=== PATIENT | male | born 1990 | race Caucasian/White ===

== ENCOUNTER 2016-09-05 10:41 | Emergency (ER) | payer MEDICAID ==
[~2016-09-05] VITALS: Ht 177.8 cm; Wt 84.4 kg
[2016-09-05 10:42] VITALS: BP 160/94; PULSE 94; RESP 17; TEMP 97; O2SAT 100
[2016-09-05] MEDS ORDERED: ASPIRIN 81 MG TAB.CHEW PO ONE (11:00)
[2016-09-05] MEDS ORDERED: LORazepam 1 MG TABLET PO ONE (11:00)
[2016-09-05 11:32] LABS: BASOPHILS % (AUTO) 0.6 % (0.0-2.0); EOSINOPHILS # (AUTO) 0.2 K/uL (0.0-0.4); EOSINOPHILS % (AUTO) 3.5 % (0.0-4.0); HEMATOCRIT 45.4 % (36-54); HEMOGLOBIN 14.9 g/dL (14.0-18.0); LYMPHOCYTES # (AUTO) 2.6 K/uL (1.0-5.5); LYMPHOCYTES % (AUTO) 43.3 % (20.5-51.5); MEAN CORPUSCULAR HEMOGLOBIN 29 pg (27-31); MEAN CORPUSCULAR HGB CONC 33 % (32-36); MEAN CORPUSCULAR VOLUME 88 fL (79.0-98.0); MONOCYTES # (AUTO) 0.4 K/uL (0.0-1.0); MONOCYTES % (AUTO) 6.4 % (1.7-9.3); NEUTROPHILS # (AUTO) 2.8 K/uL (1.8-7.7); NEUTROPHILS % (AUTO) 46.2 % (40.0-70.0); PLATELET COUNT (AUTO) 285 K/uL (130-430); RED BLOOD CELL COUNT(AUTO) 5.18 MIL/uL (4.2-6.2); RED CELL DISTRIBUTION WIDTH 12.7 % (9.0-15.0)
[2016-09-05 11:39] LABS: CALCIUM 9.2 mg/dL (8.4-11.0); CREATININE 1.21 mg/dL (0.55-1.30); POTASSIUM 4.1 mmol/L (3.5-5.1)
[2016-09-05 12:00] VITALS: BP 137/79; PULSE 98; RESP 17; TEMP 97; O2SAT 100
== END 2016-09-05 12:00 | disposition home or self-care (01) ==
LOC: SED 10:41
DX: R07.89 Other chest pain (principal); F41.9 Anxiety disorder, unspecified; R03.0 Elevated blood-pressure reading, without diagnosis of hypertension
CPT/HCPCS: 36415; 71010; 80048; 83880; 84484; 85025; 85379; 93005; 99285

== ENCOUNTER 2022-02-20 23:03 | Emergency (ER) | payer MEDICAID ==
[~2022-02-20] VITALS: Ht 177.8 cm; Wt 88.0 kg
[2022-02-20 23:10] VITALS: BP_SYST 172
--- NOTE | 2022-02-20 23:10 | NUR ---
Placed in room 2 . Placed on cardiac cath technician, blood pressure machine and pulse oximeter. To gown for exam. Side rails up. Report given to Ravinder CALDERÓN.
--- NOTE | 2022-02-20 23:30 | NUR ---
Pt in bed 2 w/ c/o left-sided chest tightness x 1 week w/ SOB. Pt denies N/V/D, pt denies cough. Pt states "I have been taking anabolic steroids". 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 Pt on pulse oximetry. Normal skin color for ethnicity. Respirations even and unlabored.
[2022-02-20 23:55] LABS: BASOPHILS # (AUTO) 0.1 K/uL (0.0-0.2); BASOPHILS % (AUTO) 1.4 % (0.0-2.0); EOSINOPHILS # (AUTO) 0.1 K/uL (0.0-0.4); EOSINOPHILS % (AUTO) 1.7 % (0.0-4.0); HEMOGLOBIN 16.1 g/dL (14.0-18.0); LYMPHOCYTES # (AUTO) 2.5 K/uL (1.0-5.5); LYMPHOCYTES % (AUTO) 30.1 % (20.5-51.5); MEAN CORPUSCULAR HEMOGLOBIN 30 pg (27-31); MEAN CORPUSCULAR HGB CONC 35 % (32-36); MEAN CORPUSCULAR VOLUME 84 fL (79.0-98.0); MONOCYTES # (AUTO) 0.8 K/uL (0.0-1.0); NEUTROPHILS # (AUTO) 4.8 K/uL (1.8-7.7); NEUTROPHILS % (AUTO) 57.8 % (40.0-70.0); PLATELET COUNT (AUTO) 436 K/uL (130-430); RED BLOOD CELL COUNT(AUTO) 5.46 MIL/uL (4.2-6.2); RED CELL DISTRIBUTION WIDTH 18.4 % (9.0-15.0); WHITE BLOOD COUNT (AUTO) 8.4 K/uL (4.8-10.8)
--- NOTE | 2022-02-21 00:24 | NUR ---
MD at bedside at this time updating patient on plan of care.
[2022-02-21 00:29] LABS: ANION GAP 11 (5-15); CALCIUM 9.3 mg/dL (8.4-11.0); CHLORIDE 98 mmol/L (98-107); CREATININE 1.19 mg/dL (0.55-1.30); GLUCOSE 181 mg/dL (70-99); POTASSIUM 3.8 mmol/L (3.5-5.1); SODIUM SERUM 138 mmol/L (136-145); UREA NITROGEN, BLOOD 18 mg/dL (8-21)
[2022-02-21 00:32] LABS: GFR AFRICAN AMERICAN 92 mL/min (>90)
[2022-02-21 00:45] LABS: ALANINE AMINOTRANSFERASE 157 U/L (12-78); ALBUMIN 3.4 g/dL (3.4-4.8); ASPARTATE AMINOTRANSFERASE 64 U/L (10-37); TOTAL BILIRUBIN 6.6 mg/dL (0.0-1.0)
--- NOTE | 2022-02-21 02:30 | NUR ---
MD Mclean at patient bedside giving discharge information to patient.
--- NOTE | 2022-02-21 03:07 | NUR ---
Patient given written and verbal discharge instructions and verbalizes understanding. ER MD discussed with patient the results and treatment provided. Patient in stable condition. ID arm band removed. Patient educated on pain management and to follow up with PMD. Pain Scale . Opportunity for questions provided and answered. Medication side effect fact sheet provided.
[2022-02-21 03:08] VITALS: BP_SYST 142
== END 2022-02-21 03:08 | disposition home or self-care (01) ==
LOC: SED 23:03
DX: E80.6 Other disorders of bilirubin metabolism (principal); R07.9 Chest pain, unspecified; R06.02 Shortness of breath; R11.0 Nausea; R03.0 Elevated blood-pressure reading, without diagnosis of hypertension; Z79.899 Other long term (current) drug therapy
CPT/HCPCS: 36415; 71045; 80053; 84484; 85025; 85379; 93005; 99285

== ENCOUNTER 2022-02-23 22:36 | Emergency (ER) | payer MEDICAID ==
[~2022-02-23] VITALS: Ht 177.8 cm; Wt 85.7 kg
[2022-02-23 22:45] VITALS: BP_SYST 145
--- NOTE | 2022-02-23 22:45 | NUR ---
Patient triaged and placed in waiting room. VSS and patient appears in no acute distress at this time. Awaiting for available bed, and MD notified of need for MSE.
--- NOTE | 2022-02-23 23:14 | NUR ---
ER examining patient in the traige room.
[2022-02-23 23:40] VITALS: BP_SYST 142
--- NOTE | 2022-02-23 23:40 | NUR ---
Patient given verbal discharge instructions by Dr Carey verbalizes understanding. ER MD discussed with patient the results and treatment provided. Patient in stable condition. ID arm band removed. no Rx of given. Patient educated on pain management and to follow up with PMD. Pain Scale 0/10. Opportunity for questions provided and answered. Medication side effect fact sheet provided.
== END 2022-02-23 23:40 | disposition home or self-care (01) ==
LOC: SED 22:36
DX: R94.5 Abnormal results of liver function studies (principal)
CPT/HCPCS: 99281

== ENCOUNTER 2022-02-26 11:47 | Inpatient (IN) | payer MEDICAID ==
[~2022-02-26] VITALS: Ht 177.8 cm; Wt 86.2 kg
[2022-02-26 11:57] VITALS: BP_SYST 153
--- NOTE | 2022-02-26 12:03 | NUR ---
Triaged pt and pt placed in waiting room until bed becomes available. Pt c/o abnormal lab values. Liver enzymes elevated. Pt also very itchy. x1 week. Pt abruptly stopped using steroids he states he used for working out. A&Ox4. Skin intact. VSS. NKA. No known medical conditions. No chest pain and no sob. Skin slightly jaundice in appearance. Ambulatory with steady gait coming from home.
--- NOTE | 2022-02-26 12:32 | NUR ---
ER in triage examining patient.
[2022-02-26 12:57] LABS: BASOPHILS % (AUTO) 0.5 % (0.0-2.0); EOSINOPHILS # (AUTO) 0.1 K/uL (0.0-0.4); EOSINOPHILS % (AUTO) 1.8 % (0.0-4.0); HEMATOCRIT 48.7 % (36-54); HEMOGLOBIN 16.9 g/dL (14.0-18.0); LYMPHOCYTES # (AUTO) 1.4 K/uL (1.0-5.5); LYMPHOCYTES % (AUTO) 21.8 % (20.5-51.5); MEAN CORPUSCULAR HEMOGLOBIN 30 pg (27-31); MEAN CORPUSCULAR HGB CONC 35 % (32-36); MEAN CORPUSCULAR VOLUME 85 fL (79.0-98.0); MONOCYTES # (AUTO) 0.3 K/uL (0.0-1.0); MONOCYTES % (AUTO) 4.7 % (1.7-9.3); NEUTROPHILS # (AUTO) 4.7 K/uL (1.8-7.7); NEUTROPHILS % (AUTO) 71.2 % (40.0-70.0); PLATELET COUNT (AUTO) 436 K/uL (130-430); RED BLOOD CELL COUNT(AUTO) 5.71 MIL/uL (4.2-6.2); RED CELL DISTRIBUTION WIDTH 18.4 % (9.0-15.0); WHITE BLOOD COUNT (AUTO) 6.6 K/uL (4.8-10.8)
[2022-02-26 13:10] LABS: INR 0.9 (0.80-1.20); PROTHROMBIN TIME 9.5 SECS (9.5-12.5)
[2022-02-26 13:15] LABS: ALBUMIN 3.8 g/dL (3.4-4.8); CREATININE 1.11 mg/dL (0.55-1.30); TOTAL BILIRUBIN 7.7 mg/dL (0.0-1.0)
[2022-02-26 13:32] LABS: POTASSIUM 4.2 mmol/L (3.5-5.1)
[2022-02-26 14:44] LABS: AMYLASE 65 U/L (0-100)
[2022-02-26 14:49] LABS: C-REACTIVE PROTEIN QUANT < 0.2 mg/dL (0-0.5)
--- NOTE | 2022-02-26 17:09 | NUR ---
Notified ED Admitting regarding Dr. Gaona's request for admission/transfer. Per Dr. Gaona, pt is stable for transfer. Will contact unemployment insurance director regarding this matter.
--- NOTE | 2022-02-26 17:57 | NUR ---
Patient to ER bed 03 to gown for evaluation. Side rails up. Report given to KAITLYNN PERAZA
--- NOTE | 2022-02-26 18:00 | NUR ---
BROUGHT BACK TO BED #3 AWAITING ADMISSION
--- NOTE | 2022-02-26 18:01 | NUR ---
COVID SAMPLE SENT TO LAB 17:59.
--- NOTE | 2022-02-26 19:07 | NUR ---
# 20 gauge angiocath placed to right forearm. Use of asceptic technique. Opsite placed over site. Blood return noted. Flushed with 10 cc of normal saline. No evidence of infiltration noted. Patient tolerated well.
--- NOTE | 2022-02-26 19:33 | NUR ---
URINE OBTAINED AND TAKEN TO LAB
--- NOTE | 2022-02-26 19:43 | NUR ---
ENDORSED ALL CARE TO COLTON CALDERÓN.
--- NOTE | 2022-02-26 20:01 | NUR ---
Patient will be admitted to care of MD Ruvalcaba. Admitted to MS unit. Will go to room (PENDING). Belongings list completed. Complete and up to date summary report printed. SBAR report given at to KAITLYNN Garcia with opportunity for questions.
[2022-02-26 20:45] LABS: BILIRUBIN,URINE 2+ (NEGATIVE); CLARITY/URINE CLEAR (CLEAR); COLOR,URINE ORANGE (YELLOW); GLUCOSE,URINE NEGATIVE (NEGATIVE); KETONES,URINE NEGATIVE (NEGATIVE); LEUKOCYTE ESTERASE ,URINE NEGATIVE (NEGATIVE); NITRITE, URINE NEGATIVE (NEGATIVE); PROTEIN URINE NEGATIVE (NEGATIVE)
--- NOTE | 2022-02-26 20:45 | NUR ---
Pt arrived on unit at 2038 via W/C and accompanied by ER Staff Nurse. Pt condition stable.
[2022-02-26] MEDS: lisinopriL 20 MG TABLET PO SCH (21:00)
[2022-02-26 21:16] VITALS: BP_SYST 154
[2022-02-26 21:19] VITALS: BP_SYST 154
[2022-02-26 22:11] LABS: BLOOD, URINE TRACE (NEGATIVE)
--- NOTE | 2022-02-26 22:45 | NUR ---
Pt reports he was taking steroids from September 2021 through December 2021 for bodybuilding. His normal routine would be to follow this with Estrogen-lowering medication - but his liver was giving him trouble. He would normally do this routine every other year and began in his twenties while bodybuilding.
[2022-02-26 22:49] LABS: BACTERIA,URINE RARE /HPF (None Seen); RBC,URINE 0-3 /HPF (0-3); WBC,URINE 0-3 /HPF (0-3)
[2022-02-26 22:50] LABS: MUCUS,URINE 1+ /LPF (None Seen)
[2022-02-26] MEDS: DIPHENHYDRAMINE HCL 50 MG CAPSULE PO PRN (23:31)
[2022-02-27 01:00] VITALS: BP_SYST 147
--- NOTE | 2022-02-27 02:35 | NUR ---
Estrogen-modulating medication pt used was Clomid (Brand Name).
[2022-02-27] MEDS: DIPHENHYDRAMINE HCL 50 MG CAPSULE PO PRN ×2 (05:37→20:28)
--- NOTE | 2022-02-27 06:33 | NUR ---
Dr Graves's exchange ([phone]) was called for consult. Exchange notified nurse that Dr. Centeno will handle this consult. Information on pt, including INS. relayed to exchange.
[2022-02-27 08:00] VITALS: BP_SYST 123
[2022-02-27] MEDS: HYDROCHLOROTHIAZIDE 25 MG TABLET (HCTZ) PO SCH (08:33)
[2022-02-27 12:00] VITALS: BP_SYST 138
[2022-02-27] MEDS ORDERED: ursodioL 300 MG CAPSULE PO ONE (12:00)
[2022-02-27 12:36] LABS: TOTAL IRON BIND. CAPACITY 345 ug/dL (250-450)
[2022-02-27 12:42] LABS: ACETAMINOPHEN < 1 ug/mL (1-30)
--- NOTE | 2022-02-27 14:12 | NUR ---
Patient with order for CT Guided Liver Biopsy. Per Radiology, procedure will only be available by Wednesday. Called Dr. Centeno office and left message. Toll Transmission Worker Marti said she will message doctor or the situation. Will continue to monitor.
[2022-02-27 16:00] VITALS: BP_SYST 140
--- NOTE | 2022-02-27 18:00 | NUR ---
CLOSING NOTE: Pt. alert, oriented and verbally responsive, BRP. Pt. aware of situation regarding CT guided liver biopsy. Safety precaution observed, all needs met throughout shift. Will endorse to caustic cresylate shift superintendent RN.
[2022-02-27 20:05] VITALS: BP_SYST 116
[2022-02-27] MEDS: ursodioL 300 MG CAPSULE PO SCH (20:28)
[2022-02-27] MEDS: lisinopriL 20 MG TABLET PO SCH (20:28)
--- NOTE | 2022-02-27 22:18 | NUR ---
Rounds/PT refused IV Pt refused IV and pulled out his IV. Bleeding controlled and gauze applied. Educated pt on risks/benefits. Pt verbalized understanding. Pt moved to room 107-B with all his belongings.
[2022-02-28 00:20] VITALS: BP_SYST 104
--- NOTE | 2022-02-28 04:25 | NUR ---
rounds Dr. Lencho Ruvalcaba rounds.
[2022-02-28] MEDS ORDERED: BEN50 PO (04:29)
[2022-02-28] MEDS ORDERED: LISI20TA30 PO (04:29)
[2022-02-28] MEDS ORDERED: HCT25 PO (04:29)
[2022-02-28] MEDS ORDERED: VIS50 PO (04:29)
[2022-02-28] MEDS ORDERED: URSO300C7 PO (04:29)
--- NOTE | 2022-02-28 07:15 | NUR ---
Closing notes/spoke with GI Pt asleep, easily awakens, no s/s distress. Spoke with Dr. Barahona at the station and informed him that CT guided biopsy of liver won't be able to be done until Wednesday. Per MD pt is not cleared for discharge yet. Call light within reach. To endorse to AM nurse.
[2022-02-28 07:39] LABS: BASOPHILS % (AUTO) 0.7 % (0.0-2.0); EOSINOPHILS # (AUTO) 0.2 K/uL (0.0-0.4); EOSINOPHILS % (AUTO) 3.5 % (0.0-4.0); HEMATOCRIT 48.4 % (36-54); HEMOGLOBIN 16.6 g/dL (14.0-18.0); LYMPHOCYTES # (AUTO) 2.4 K/uL (1.0-5.5); LYMPHOCYTES % (AUTO) 35.4 % (20.5-51.5); MEAN CORPUSCULAR HEMOGLOBIN 29 pg (27-31); MEAN CORPUSCULAR HGB CONC 34 % (32-36); MEAN CORPUSCULAR VOLUME 86 fL (79.0-98.0); MONOCYTES # (AUTO) 0.5 K/uL (0.0-1.0); MONOCYTES % (AUTO) 6.8 % (1.7-9.3); NEUTROPHILS # (AUTO) 3.7 K/uL (1.8-7.7); NEUTROPHILS % (AUTO) 53.6 % (40.0-70.0); PLATELET COUNT (AUTO) 420 K/uL (130-430); RED BLOOD CELL COUNT(AUTO) 5.65 MIL/uL (4.2-6.2); RED CELL DISTRIBUTION WIDTH 18.9 % (9.0-15.0); WHITE BLOOD COUNT (AUTO) 6.9 K/uL (4.8-10.8)
[2022-02-28 08:00] VITALS: BP_SYST 113
[2022-02-28 08:06] LABS: ALBUMIN 3.5 g/dL (3.4-4.8); CREATININE 1.48 mg/dL (0.55-1.30); POTASSIUM 3.9 mmol/L (3.5-5.1)
[2022-02-28 08:08] LABS: INR 0.9 (0.80-1.20); PROTHROMBIN TIME 9.1 SECS (9.5-12.5)
[2022-02-28] MEDS: HYDROCHLOROTHIAZIDE 25 MG TABLET (HCTZ) PO SCH (08:45)
[2022-02-28] MEDS: ursodioL 300 MG CAPSULE PO SCH ×2 (08:45→22:26)
[2022-02-28 09:06] LABS: ALPHA-1-ANTITRYPSIN, S 159 mg/dL (95-164)
[2022-02-28 12:00] VITALS: BP_SYST 128
[2022-02-28] MEDS: DIPHENHYDRAMINE HCL 50 MG CAPSULE PO PRN ×2 (12:07→18:16)
[2022-02-28 16:00] VITALS: BP_SYST 125
[2022-02-28 20:45] VITALS: BP_SYST 122
[2022-02-28] MEDS: lisinopriL 20 MG TABLET PO SCH (22:26)
--- NOTE | 2022-02-28 22:40 | NUR ---
Paged Jerman Zaman s/w Ilda
[2022-02-28] MEDS ORDERED: CALCIUM CARBONATE 500 MG/ TAB.CHEW PO PRN (23:15)
--- NOTE | 2022-02-28 23:15 | NUR ---
Received MD callback Pt c/o heartburn and requests Tums. Paged and received MD callback for Tums 500mg Q4 PRN. Will carry out.
[2022-03-01] VITALS (7 sets, daily range): BP systolic 107–136
[2022-03-01 04:06] LABS: AFP, TUMOR MARKER 4.5 ng/mL (0.0-6.9)
[2022-03-01 08:06] LABS: HEPATITIS A AB, IgM Negative (Negative); HEPATITIS B CORE AB, IgM Negative (Negative); HEPATITIS B SURFACE AG Negative (Negative)
[2022-03-01 08:08] LABS: BASOPHILS % (AUTO) 0.5 % (0.0-2.0); EOSINOPHILS # (AUTO) 0.3 K/uL (0.0-0.4); EOSINOPHILS % (AUTO) 3.1 % (0.0-4.0); HEMOGLOBIN 17.4 g/dL (14.0-18.0); LYMPHOCYTES # (AUTO) 2.2 K/uL (1.0-5.5); LYMPHOCYTES % (AUTO) 27.6 % (20.5-51.5); MEAN CORPUSCULAR HEMOGLOBIN 29 pg (27-31); MEAN CORPUSCULAR HGB CONC 34 % (32-36); MEAN CORPUSCULAR VOLUME 86 fL (79.0-98.0); MONOCYTES # (AUTO) 0.5 K/uL (0.0-1.0); MONOCYTES % (AUTO) 6.3 % (1.7-9.3); NEUTROPHILS # (AUTO) 5.1 K/uL (1.8-7.7); NEUTROPHILS % (AUTO) 62.5 % (40.0-70.0); PLATELET COUNT (AUTO) 447 K/uL (130-430); RED BLOOD CELL COUNT(AUTO) 5.93 MIL/uL (4.2-6.2); RED CELL DISTRIBUTION WIDTH 18.7 % (9.0-15.0); WHITE BLOOD COUNT (AUTO) 8.1 K/uL (4.8-10.8)
[2022-03-01] MEDS: DIPHENHYDRAMINE HCL 50 MG CAPSULE PO PRN (08:48)
[2022-03-01] MEDS: ursodioL 300 MG CAPSULE PO SCH ×2 (08:48→22:03)
[2022-03-01] MEDS: HYDROCHLOROTHIAZIDE 25 MG TABLET (HCTZ) PO SCH (08:48)
[2022-03-01 09:07] LABS: ALBUMIN 3.6 g/dL (3.4-4.8); CALCIUM 10.1 mg/dL (8.4-11.0); CREATININE 1.94 mg/dL (0.55-1.30); TOTAL BILIRUBIN 4.9 mg/dL (0.0-1.0)
[2022-03-01 09:43] LABS: POTASSIUM 4.9 mmol/L (3.5-5.1)
--- NOTE | 2022-03-01 18:55 | NUR ---
At 19:50, pt c/o new-onset left arm numbness and chest tightness. Called Dr Ruvalcaba, awaiting call back, will endorse to night nurse.
--- NOTE | 2022-03-01 19:52 | NUR ---
CALLED BACK Dr. Ruvalcaba called back and reported abnormal EKG result, received order for Cardio consult. Awaiting Troponin result.
--- NOTE | 2022-03-01 20:17 | NUR ---
TROPONIN LAB DRAWN PER TECH.
--- NOTE | 2022-03-01 20:48 | NUR ---
STAT CONSULT CALLED Reason for Consultation: Abnormal EKG Was consult called: Y Person who was notified: Missy Consulting Physician: Frank Zaman Ordering Physician: Jerman Zaman
--- NOTE | 2022-03-01 21:50 | NUR ---
TRANSFER OF CARE Endorsed to [facility] for continuity of care. Pt in stable condition. Still c/o some numbness on lips and L. arm. VSS. Pt changed to Telemetry per Dr. Cruz Ruvalcaba.
[2022-03-01] MEDS: lisinopriL 20 MG TABLET PO SCH (22:03)
[2022-03-02] VITALS: BP_SYST 137
[2022-03-02 04:00] VITALS: BP_SYST 105
[2022-03-02 06:48] LABS: BASOPHILS # (AUTO) 0.1 K/uL (0.0-0.2); BASOPHILS % (AUTO) 0.8 % (0.0-2.0); EOSINOPHILS # (AUTO) 0.3 K/uL (0.0-0.4); EOSINOPHILS % (AUTO) 4.8 % (0.0-4.0); HEMATOCRIT 46.7 % (36-54); HEMOGLOBIN 16.2 g/dL (14.0-18.0); LYMPHOCYTES # (AUTO) 2.8 K/uL (1.0-5.5); LYMPHOCYTES % (AUTO) 38.4 % (20.5-51.5); MEAN CORPUSCULAR HEMOGLOBIN 30 pg (27-31); MEAN CORPUSCULAR HGB CONC 35 % (32-36); MEAN CORPUSCULAR VOLUME 85 fL (79.0-98.0); MONOCYTES # (AUTO) 0.5 K/uL (0.0-1.0); MONOCYTES % (AUTO) 6.3 % (1.7-9.3); NEUTROPHILS # (AUTO) 3.6 K/uL (1.8-7.7); NEUTROPHILS % (AUTO) 49.7 % (40.0-70.0); PLATELET COUNT (AUTO) 439 K/uL (130-430); RED BLOOD CELL COUNT(AUTO) 5.49 MIL/uL (4.2-6.2); RED CELL DISTRIBUTION WIDTH 18.3 % (9.0-15.0); WHITE BLOOD COUNT (AUTO) 7.2 K/uL (4.8-10.8)
[2022-03-02 08:07] LABS: ANTI NUCLEAR AB WITH REFLEX Negative (Negative)
[2022-03-02] MEDS: ursodioL 300 MG CAPSULE PO SCH ×2 (08:32→20:45)
[2022-03-02] MEDS: HYDROCHLOROTHIAZIDE 25 MG TABLET (HCTZ) PO SCH (08:32)
[2022-03-02 08:45] VITALS: BP_SYST 124
[2022-03-02 09:10] LABS: ALBUMIN 3.4 g/dL (3.4-4.8); CALCIUM 9.1 mg/dL (8.4-11.0); CREATININE 1.66 mg/dL (0.55-1.30); POTASSIUM 3.7 mmol/L (3.5-5.1); TOTAL BILIRUBIN 4.6 mg/dL (0.0-1.0)
[2022-03-02] MEDS ORDERED: MIDAZOLAM HCL 5 MG/5 ML VIAL ONE (09:52)
[2022-03-02] MEDS: D5/0.45 NS 1,000 ML IV SCH ×2 (10:00→20:00)
--- NOTE | 2022-03-02 10:30 | NUR ---
CONSULTATION PAGED/CALLED Reason for Consultation: [] CAPO Person Who was Notified: [] DR ANDERSEN Consulting Physician: [] DR ANDERSEN Sales Consultant Residential Manager Specialty: [] ENVIRONMENTAL QUALITY ANALYST Ordering Physician: [] DR FREGOSO
[2022-03-02] MEDS ORDERED: DIPHENHYDRAMINE INJ 50 MG/ML VIAL ONE (11:48)
--- NOTE | 2022-03-02 15:05 | NUR ---
rnnotes patient refusing IV placement multiple times at this time. Refusing IV fluids as well.
--- NOTE | 2022-03-02 17:58 | NUR ---
rn notes patient remains on room air, no sob noted. Patients right quadrant pain controlled with ice pack. Refusing any IV insertion in the floor. takes oral medications. Liver biopsy done today.
[2022-03-02 20:00] VITALS: BP_SYST 131
--- NOTE | 2022-03-02 20:00 | NUR ---
RECEIVED PT OUT OF BED TO CHAIR PT TALKATIVE AND SOMEWHAT ANXIOUS PT DECLINES IV AT THIS TIME AND IV FLUIDS RISK AND BENEFITS EXPLAINED ASSESSMENT COMPLETED PLAN OF CARE REVIEWED PT ENDORSES ITCHING WILL MEDICATE ORDERED CALL LIGHT PLACED IN REACH NO ACUTE DISTRESS NOTED AT THIS TIME
[2022-03-02] MEDS: lisinopriL 20 MG TABLET PO SCH (20:46)
[2022-03-02] MEDS: DIPHENHYDRAMINE HCL 50 MG CAPSULE PO PRN (21:36)
--- NOTE | 2022-03-03 | NUR ---
PT RESTING WELL DENIES PAIN AT THIS TIME ENDORSES HE IS COMFORTABLE CALL LIGHT IN REACH WILL CONTINUE TO MONITOR AND ASSESS
[2022-03-03 00:44] VITALS: BP_SYST 129
[2022-03-03 04:30] VITALS: BP_SYST 113
--- NOTE | 2022-03-03 05:31 | NUR ---
PT REFUSING TO KEEP TELEMETRY BOX ON RISK AND BENEFITS EXPLAINED AND IMPORTACE OF MONITORING PT HR PT CONTINUES TO REFUSE AND STATES HE WILL SIGN A WAIVER NOT TO WEAR A TELEMETRY BOX AT THIS TIME VSS ALL NEEDS ANTICIPATED
[2022-03-03] MEDS: D5/0.45 NS 1,000 ML IV SCH (06:00)
[2022-03-03 07:33] LABS: BASOPHILS # (AUTO) 0.1 K/uL (0.0-0.2); BASOPHILS % (AUTO) 1.5 % (0.0-2.0); EOSINOPHILS # (AUTO) 0.2 K/uL (0.0-0.4); HEMATOCRIT 47.1 % (36-54); HEMOGLOBIN 16.5 g/dL (14.0-18.0); LYMPHOCYTES # (AUTO) 2.4 K/uL (1.0-5.5); LYMPHOCYTES % (AUTO) 35.4 % (20.5-51.5); MEAN CORPUSCULAR HEMOGLOBIN 29 pg (27-31); MEAN CORPUSCULAR HGB CONC 35 % (32-36); MEAN CORPUSCULAR VOLUME 84 fL (79.0-98.0); MONOCYTES # (AUTO) 0.4 K/uL (0.0-1.0); MONOCYTES % (AUTO) 6.1 % (1.7-9.3); NEUTROPHILS # (AUTO) 3.7 K/uL (1.8-7.7); PLATELET COUNT (AUTO) 435 K/uL (130-430); RED BLOOD CELL COUNT(AUTO) 5.59 MIL/uL (4.2-6.2); RED CELL DISTRIBUTION WIDTH 18.3 % (9.0-15.0); WHITE BLOOD COUNT (AUTO) 6.8 K/uL (4.8-10.8)
[2022-03-03 07:58] LABS: CALCIUM 9.4 mg/dL (8.4-11.0); CREATININE 1.35 mg/dL (0.55-1.30); PHOSPHORUS 4.5 mg/dL (2.7-4.5); POTASSIUM 3.9 mmol/L (3.5-5.1)
[2022-03-03 08:33] VITALS: BP_SYST 123
[2022-03-03] MEDS: ursodioL 300 MG CAPSULE PO SCH (08:47)
[2022-03-03] MEDS: HYDROCHLOROTHIAZIDE 25 MG TABLET (HCTZ) PO SCH (08:47)
[2022-03-03 09:14] LABS: ALBUMIN 3.5 g/dL (3.4-4.8); BILIRUBIN,DIRECT 3.6 mg/dL (0.0-0.3); TOTAL BILIRUBIN 4.4 mg/dL (0.0-1.0)
[2022-03-03 12:03] VITALS: BP_SYST 130
[2022-03-03 12:39] VITALS: BP_SYST 130
--- NOTE | 2022-03-03 12:40 | NUR ---
0730 Pt. aaox4, wants to go home today, no distress noted 1100 Renal and GI cleared pt. for discharge, call to kulwant Zaman to send pt. home 1200 Pt. signed all paperwork for dc, verbalized understanding of instructions, given rx paper will take it to pharmacy. Left ambulatory, aaox4 no distress, all belongings accounted for, no iv.
[2022-03-03 14:06] LABS: ANTI-SMOOTH MUSCLE AB 3 Units (0-19)
[2022-03-04 14:06] LABS: ATYPICAL pANCA <1:20 titer (Neg:<1:20); CYTOPLASMIC (C-ANCA) <1:20 titer (Neg:<1:20); CYTOPLASMIC (P-ANCA) <1:20 titer (Neg:<1:20)
== END 2022-03-03 17:59 | disposition home or self-care (01) ==
LOC: SED 11:47 → SMU 17:17 → STU 03-02 02:36
PROVIDERS: ADMIT Preventive Medicine Preventive Medicine/Occupational Environmental Medicine; ATTEND Preventive Medicine Preventive Medicine/Occupational Environmental Medicine
PROC: 0FB13ZX Excision of Right Lobe Liver, Percutaneous Approach, Diagnostic (ICD-10-PCS; principal; 2022-02-26)
DX: K75.89 Other specified inflammatory liver diseases (principal); N17.0 Acute kidney failure with tubular necrosis; K83.1 Obstruction of bile duct; E87.1 Hypo-osmolality and hyponatremia; E80.6 Other disorders of bilirubin metabolism; K57.90 Diverticulosis of intestine, part unspecified, without perforation or abscess without bleeding; L29.8 Other pruritus; R74.01 Elevation of levels of liver transaminase levels; R73.9 Hyperglycemia, unspecified; L29.9 Pruritus, unspecified; Z20.822 Contact with and (suspected) exposure to COVID-19; K57.30 Diverticulosis of large intestine without perforation or abscess without bleeding; I12.9 Hypertensive chronic kidney disease with stage 1 through stage 4 chronic kidney disease, or unspecified chronic kidney disease; N18.9 Chronic kidney disease, unspecified; T38.7X5A Adverse effect of androgens and anabolic congeners, initial encounter
CPT/HCPCS: 36415; 47000; 76376; 76770; 80048; 80053; 80074; 80076; 81000; 82103; 82105; 82150; 82607; 82977; 83516; 83540; 83550; 83605; 83690; 83735; 84100; 84443; 84484; 85025; 85610-TC; 85730-TC; 86038; 86140; 86256; 88307; 88313; 93005; 99285; G0378; G0480; G0481; J1200; J2250; Q0163